=== PATIENT | male | born 1990 | race Caucasian/White ===

== ENCOUNTER 2019-12-20 12:19 | Emergency (ER) | payer MEDICARE, OTHER ==
[~2019-12-20] VITALS: Ht 177.8 cm; Wt 113.4 kg
--- OUTSIDE RECORDS SUMMARY | ~2019-12-20 | XMS ---
Demographics + + + | Address | [address] | | | [address] | | | [place] [address] | + + + | Preferred Language | Unknown | + + + | Marital Status | Unknown | + + + | Worship Affiliation | Unknown | + + + | Race | Unknown | + + + | Ethnic Group | Unknown | + + + Author + + + | Author | [facility] | + + + | Organization | [facility] | + + + | Address | [address] | | | [place] [address] | + + + | Phone | | + + + Care Team Providers + + + + | Care Diesel Engine Pipe Fitter Name | Role | Phone | + + + + Unavailable | Unavailable | + + + + PROBLEMS +---------+ + + +--------+ + + | Type | Condition | ICD9-CM | [id number] | Onset | Condition | SNOMED | | | | Code | Code | Dates | Status | Code | +---------+ + + +--------+ + + | 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 | | | | | | +---------+ + + +--------+ + + | Problem | Sleep | | G47.30 | | Active | 56217206 | | | apnea, | | | | | | | | unspecifie | | | | | | | | d | | | | | | +---------+ + + +--------+ + + | Problem | Vitamin D | | E55.9 | | Active | 02760880 | | | deficiency | | | | | | +---------+ + + +--------+ + + | Problem | Schizophre | | F20.9 | | Active | 39248401 | | | yessy | | | | | | +---------+ + + +--------+ + + | Problem | Headache | | R51 | | Active | 78274355 | +---------+ + + +--------+ + + | Problem | Otitis | H60.90 | | | Active | 9688081 | | | external | | | | | | +---------+ + + +--------+ + + | Problem | History of | G47.33 | | | Active | 89545987 | | | | | | | | | | | obstructiv | | | | | | | | e sleep | | | | | | | | apnea | | | | | | +---------+ + + +--------+ + + | Problem | Obesity | | E66.9 | | Active | 111104513 | +---------+ + + +--------+ + + | Problem | Elevated | | R03.0 | | Active | [id number] | | | blood | | | | | | | | pressure | | | | | | | | reading | | | | | | | | without | | | | | | | | diagnosis | | | | | | | | of | | | | | | | | hypertensi | | | | | | | | on | | | | | | +---------+ + + +--------+ + + | Problem | Snoring | | R06.83 | | Active | 71002964 | +---------+ + + +--------+ + + ALLERGIES + + + + +---------+ | Substance | Reaction | Event Type | Date | Status | + + + + +---------+ | N.K.D.A. | Unknown | Non Drug | Jan, | Unknown | | | | Allergy | | | + + + + +---------+ SOCIAL HISTORY No smoking Hx information available PLAN OF CARE + +---------+ | Activity | Details | + +---------+ +---+ | | +---+ + + + | Follow Up | 6 Months Reason:null | + + + VITAL SIGNS + + + + | Height | 6 ft 0 in in | 2017-02-06 | + + + + | Weight | 285.8 lbs | 2017-02-06 | + + + + | BMI | 38.76 kg/m2 | 2017-02-06 | + + + + | Temperature | 97.9 degrees Fahrenheit | 2017-02-06 | + + + + | Heart Rate | 80 /min | 2017-02-06 | + + + + | Blood pressure systolic | 143 mm Hg | 2017-02-06 | + + + + | Blood pressure diastolic | 68 mm Hg | 2017-02-06 | + + + + MEDICATIONS + + + + + + + +--------+ | Medicati | Instruct | Dosage | Frequenc | Start | End Date | Duration | Status | | on | ions | | y | Date | | | | + + + + + + + +--------+ | Abilify | | 2 ml | | | | | Active | | Maintena | | | | | | | | | 400 MG | | | | | | | | + + + + + + + +--------+ | CPAP | | as | | 25 Jeremy, | | | Active | | | | directed | | 2017 | | | | + + + + + + + +--------+ | Perphena | Orally | 1 tablet | 24h | | | | Active | | zine 4 | Once a | | | | | | | | MG | day | | | | | | | + + + + + + + +--------+ | Abilify | Orally | 1 tablet | 24h | | | | Active | | 2 MG | Once a | | | | | | | | | day | | | | | | | + + + + + + + +--------+ | Vitamin | Orally | 1 | 24h | | | | Active | | D3 1000 | Once a | capsule | | | | | | | UNIT | day | | | | | | | + + + + + + + +--------+ | Zyprexa | Orally | 1 tablet | | | | | Active | | 15 MG | one time | | | | | | | | | daily | | | | | | | | | in pm | | | | | | | + + + + + + + +--------+ | Tums 500 | Orally | 2tablet | | 14 Carlos, | | | Active | | mg | twice a | | | 2016 | | | | | | day PRN | | | | | | | | | upset | | | | | | | | | stomach/ | | | | | | | | | indigest | | | | | | | | | ion | | | | | | | + + + + + + + +--------+ | Cycloben | | | | | | | Active | | zaprine | | | | | | | | | 10 MG | | | | | | | | + + + + + + + +--------+ | Prozac | Orally | 1 | | | | | Active | | 20 MG | one time | capsule | | | | | | | | daily | in the | | | | | | | | in pm | morning | | | | | | + + + + + + + +--------+ | Ibuprofe | Orally | 3 | | 14 Carlos, | | | Active | | n 200 MG | every 6 | tablets | | 2015 | | | | | | hrs PRN | | | | | | | | | RIVERA, pain | | | | | | | + + + + + + + +--------+ RESULTS No Results PROCEDURES + + + + + | Procedure | Date Ordered | Related Diagnosis | Body Site | + + + + + | Est Level III | February 06, 2017 | | | | Intermediate | | | | + + + + + | [facility] MED/CURRENT | February 06, 2017 | | | | MED MERGE | | | | + + + + + | DOC MEDS VERIFIED | February 06, 2017 | | | | W/PT OR RE | | | | + + + + + IMMUNIZATIONS No Known Immunizations"
--- OUTSIDE RECORDS SUMMARY | ~2019-12-20 | XMS ---
Demographics + + + | Address | [address] | | | [address] | | | [place] [address] | + + + | Preferred Language | Unknown | + + + | Marital Status | Unknown | + + + | Baptism Affiliation | Unknown | + + + | Race | Unknown | + + + | Ethnic Group | Unknown | + + + Author + + + | Author | [facility] | + + + | Organization | [facility] | + + + | Address | [address] | | | [place] [address] | + + + | Phone | | + + + Care Team Providers + + + + | Care Chair Installer Name | Role | Phone | + + + + Unavailable | Unavailable | + + + + PROBLEMS + + + + + + + + | Type | Condition | ICD9-CM | [id number] | Onset | Condition | SNOMED | | | | Code | Code | Dates | Status | Code | + + + + + + + + | Assessment | Acute URI | | J06.9 | 27 December, | Active | [id number] | | | | | | 2016 | | | + + + + + + + + | Problem | Vitamin D | | E55.9 | | Active | 49465712 | | | deficiency | | | | | | + + + + + + + + | Problem | Borderline | R73.09 | | | Active | 542605800 | | | diabetes | | | | | | + + + + + + + + | Assessment | Strep | J02.0 | | 27 December, | Active | 87212378 | | | pharyngiti | | | 2016 | | | | | s | | | | | | + + + + + + + + | Problem | Otitis | H60.90 | | | Active | 5440458 | | | external | | | | | | + + + + + + + + | Problem | Elevated | | R03.0 | | Active | 402925742 | | | blood | | | [...] on | | | | | | + + + + + + + + | Problem | Obesity | | E66.9 | | Active | 956568196 | + + + + + + + + | Problem | Sleep | | G47.30 | | Active | 98251378 | | | apnea, | | | | | | | | unspecifie | | | | | | | | d | | | | | | + + + + + + + + | Problem | Snoring | | R06.83 | | Active | 42492030 | + + + + + + + + | Problem | History of | G47.33 | | | Active | 78843718 | | | | | | | | | | | obstructiv | | | | | | | | e sleep | | | | | | | | apnea | | | | | | + + + + + + + + ALLERGIES + + + + +---------+ | Substance | Reaction | Event Type | Date | Status | + + + + +---------+ | N.K.D.A. | Unknown | Non Drug | December, | Unknown | | | | Allergy | | | + + + + +---------+ SOCIAL HISTORY No smoking Hx information available PLAN OF CARE VITAL SIGNS + + + + | Height | 6 ft 0 in in | 2016-12-27 | + + + + | Weight | 289.2 lbs | 2016-12-27 | + + + + | BMI | 39.22 kg/m2 | 2016-12-27 | + + + + | Temperature | 98.0 degrees Fahrenheit | 2016-12-27 | + + + + | Heart Rate | 90 /min | 2016-12-27 | + + + + | Blood pressure systolic | 140 mm Hg | 2016-12-27 | + + + + | Blood pressure diastolic | 84 mm Hg | 2016-12-27 | + + + + MEDICATIONS + + + + + + + +--------+ | Medicati | Instruct | Dosage | Frequenc | Start | End Date | Duration | Status | | on | ions | | y | Date | | | | + + + + + + + +--------+ | CPAP | | as | | Aug, | | | Active | | | | directed | | 2016 | | | | + + + [...] + +--------+ | Ibuprofe | Orally | 2 | | 14 Carlos, | | | Active | | n 200 MG | every 6 | tablets | | 2016 | | | | | | hrs [...] + + + + + +--------+ | Ciprodex | Otic | 4 drops | 12h | 27 December, | | 7 days | Active | | 0.3-0.1 | Twice a | into | | 2016 | | | | | % | day | affected | | | | | | | | | ear | | | | | | + + + + + + + +--------+ | Penicill | orally | 1 tablet | 12h | 02 December, | 12 December, | 10 days | Active | | in V | Twice a | | | 2016 | 2016 | | | | Potassiu | day | | | | | | | | m 500 MG | | | | | | | | + + + + + + + +--------+ RESULTS + +--------+ + + | Name | Result | Date | Reference Range | + +--------+ + + | Strep Gp A Rapid | | 2016-12-27 | | | (IH) | | | | + +--------+ + + PROCEDURES + + + + + | Procedure | Date Ordered | Related Diagnosis | Body Site | + + + + + | STREP A ASSAY | December 27, 2016 | | | | W/OPTIC | | | | + + + + + | Est Level III | December 27, 2016 | | | | Intermediate | | | | + + + + + IMMUNIZATIONS No Known Immunizations"
[2019-12-20] MEDS ORDERED: FLUOXETINE HCL20 MG PO (12:37)
[2019-12-20] MEDS ORDERED: PERPHENAZINE4 MG PO (12:37)
== END 2019-12-21 18:03 ==
LOC: ED 12:19
DX: F20.9 Schizophrenia, unspecified (principal); Z79.899 Other long term (current) drug therapy
CPT/HCPCS: 51701; 80053; 80176; 81001; 84443; 85025; 99284-25; G0480

== ENCOUNTER 2021-06-04 09:21 | Emergency (ER) | payer MEDICARE, OTHER ==
[~2021-06-04] VITALS: Ht 177.8 cm; Wt 113.4 kg
[~2021-06-04 09:21] MED LIST: FLUOXETINE HCL20 MG PO; PERPHENAZINE4 MG PO
--- OUTSIDE RECORDS SUMMARY | 2021-06-04 09:28 | XMS ---
PreManage Notification: SHERRY MABRY Security Computer Peripheral Equipment Operator Events No recent Security Events currently on file CRITERIA MET - [facility] Care Guidelines CARE PROVIDERS There are no care providers on record at this time. Guidelines Source: [facility] Guidelines Date: 12/23/2019 Additional Information: Enrolled in Mental Health therapy through [employer] and currently under the [facility].\ T\nbsp; \T\nbsp;Please contact Que Harper\T\nbsp; @ [employer] regarding mental health concerns. [phone]. Prescription medications go through [facility] . Care History Behavioral 01/08/2018 [facility] Enrolled in the Assertive Community Treatment program at [facility].\T\nbsp; Contact Lis Christian with behavioral health concerns. [phone] E.D. VISIT COUNT (12 MO.) 1 [facility] TOTAL 1 NOTE: Visits indicate total known visits. ED/UCC VISIT TRACKING (12 MO.) 06/04/2021 09:22 [facility] TYPE: Emergency COMPLAINT: - R EYE IRRITATION INPATIENT VISIT TRACKING (12 MO.) No inpatient visits to display in this time frame [email or web address]
[2021-06-04] MEDS ORDERED: FLUOXETINE HCL40 MG PO (09:32)
[2021-06-04] MEDS ORDERED: OLANZAPINE5 MG PO (09:32)
[2021-06-04] MEDS ORDERED: INVEGA TRI546 MG/1.7 IM (09:32)
[2021-06-04] MEDS ORDERED: PROPRANOLOL HCL20 MG PO (09:32)
[2021-06-04] MEDS ORDERED: METFORMIN HCL1000 MG PO (09:32)
== END 2021-06-04 09:50 | disposition home or self-care (01) ==
LOC: ED 09:21
DX: R25.3 Fasciculation (principal); F20.9 Schizophrenia, unspecified; Z79.899 Other long term (current) drug therapy; Z79.84 Long term (current) use of oral hypoglycemic drugs
CPT/HCPCS: 99284